=== PATIENT | female | born 1945 | race Caucasian/White ===

== ENCOUNTER → 2016-07-11 | Outpatient (CLI) | payer OTHER ==
--- NOTE | 2016-07-11 17:24 | DX ---
AP Pelvis and Frog Lateral View of the Right Hip, Two Views July 11, 2016 at 3:57 p.m. Clinical History: 70-year-old female complaining of pain along the cephalad aspect of the right iliac crest, ongoing for three months. ICD 10 Diagnostic Codes: M25.551 and M25.559. Comparison Study: DEXA scan dated September 06, 2012, retrieved from archive status. Findings: There are degenerative features at L4-L5 and L5-S1, and subchondral degenerative sclerosis associated with the midportions of each of the sacroiliac joints. Moderately advanced degenerative os teoarthrosis of the right hip is seen with femoral-acetabular joint space narrowing and subchondral g eode formation. A rounded calcification is seen just above the symphysis pubis, which is a nonspecifi c finding and could be related to a calcified lymph node or a uterine leiomyoma. If there is further clinical concern, pelvic sonography could be considered. This area was not included on the prior DEXA scan. The ischial pubic rami are intact. Impression: Moderately advanced degenerative osteoarthritis of the right hip. If there is further clinical concern regarding the patient's right hemipelvic pain, MR imaging could be considered.
== END ==
LOC: CIMAGING 15:49
PROVIDERS: ATTEND Internal Medicine
DX: M25.551 Pain in right hip (principal); M16.11 Unilateral primary osteoarthritis, right hip
CPT/HCPCS: 73502-PO

== ENCOUNTER → 2016-12-23 | Outpatient (CLI) | payer OTHER | LOC: BRMIMAGING 13:22 | PROVIDERS: ATTEND Internal Medicine | DX: Z13.820 Encounter for screening for osteoporosis (principal); M85.80 Other specified disorders of bone density and structure, unspecified site; M06.9 Rheumatoid arthritis, unspecified ==

== ENCOUNTER → 2017-05-12 | Outpatient (CLI) | payer OTHER | LOC: CIMAGING 12:31 | PROVIDERS: ATTEND Internal Medicine | DX: Z12.31 Encounter for screening mammogram for malignant neoplasm of breast (principal) | CPT/HCPCS: G0202 ==

== ENCOUNTER → 2017-05-27 | Outpatient (CLI) | payer OTHER | LOC: FIMAGING 14:45 | PROVIDERS: ATTEND Internal Medicine | DX: R92.8 Other abnormal and inconclusive findings on diagnostic imaging of breast (principal) | CPT/HCPCS: G0206 ==

== ENCOUNTER → 2018-06-02 | Outpatient (CLI) | payer OTHER | LOC: CIMAGING 11:02 | PROVIDERS: ATTEND Internal Medicine | DX: Z12.31 Encounter for screening mammogram for malignant neoplasm of breast (principal) ==